=== PATIENT | male | born 1995 | race Caucasian/White ===

== ENCOUNTER 2019-06-29 13:25 | Emergency (ER) | payer SELFPAY ==
[~2019-06-29] VITALS: Ht 182.9 cm; Wt 63.5 kg
[2019-06-29 13:33] VITALS: Ht 182.9 cm; Wt 63.5 kg
[2019-06-29 15:24] VITALS: BP 129/76
== END 2019-06-29 15:24 | disposition other institution (70) ==
LOC: ED 13:25
DX: S60.511A Abrasion of right hand, initial encounter (principal); R07.89 Other chest pain; Z98.890 Other specified postprocedural states; X58.XXXA Exposure to other specified factors, initial encounter; Y93.89 Activity, other specified; Y92.89 Other specified places as the place of occurrence of the external cause; Y99.8 Other external cause status
CPT/HCPCS: 82962

== ENCOUNTER 2019-06-29 13:25 | Emergency (ER) | payer OTHER | END 2019-06-29 15:24 | disposition other institution (70) | LOC: ED 13:25 | DX: Z02.89 Encounter for other administrative examinations (principal) ==